=== PATIENT | female | born 1945 | race Caucasian/White ===

== ENCOUNTER 2017-04-09 08:43 | Inpatient (IN) | payer OTHER ==
[2017-03-29 13:58] VITALS: BMI 57.0
--- NOTE | 2017-03-29 14:47 | PAT Medication Instructions ---
Service Date Mar 29, 2017. Current Home Medication List Acetaminophen (Tylenol), 1-2 TAB PO UD PRN for Pain Albuterol Sulfate (Proventil Hfa), 2 PUFFS INH UD PRN for REACTIVE AIRWAY DISEASE Aspirin (Aspirin Ec), 81 MG PO QPM Atorvastatin (Lipitor), 20 MG PO QPM Bioflavonoid Products (Vitamin C Plus 500 mg), 1 TAB PO QAM Calcium/Vitamin D (Os-Humza 500 Plus D), 1 TAB PO BID Cholecalciferol (Vitamin D3), 1 TAB PO QAM Diazepam (Valium), 2 MG PO BID PRN for ANXIETY Diclofenac Sodium (Topical) (Voltaren 1% Top Gel), 1 DOSE TOP UD Docusate Sodium (Docusate Sodium), 1 CAP PO QPM Fish Oil (Alexandria-3), 1 CAP PO BID Fluticasone Propionate (Nasal) (Flonase Allergy Relief), 2 SPRAYS MOY QPM Fluticasone-Salmeterol 230/21 Mcg (Advair Hfa 230/21 Mcg), 1 PUFFS INH BID Folic Acid (Folic Acid), 1 TAB PO QPM Rgcyvcyvgfh-Dmezzlkeljd-Rmo C- (Glucosamine Chondroitin), 1 CAP PO BID Ibuprofen (Motrin), 400 MG PO BID PRN for Pain Levothyroxine Sodium (Levothyroxine Sodium), 1 TAB PO QAM Methocarbamol (Robaxin), 500 MG PO TID PRN for RN Multivitamin (Multivitamin), 1 TAB PO QAM Pantoprazole (Protonix), 40 MG PO QPM Polyethylene Glycol 3350 (Miralax), 17 GM PO QPM PRN for RN Sertraline (Zoloft), 1.5 TAB PO QAM Solifenacin (Vesicare), 10 MG PO QPM Valsartan/Hctz (Diovan Hct 160MG/12.5MG), 1 TAB PO QAM Vitamin B Cmplx/Vitc/Folic Ac (Nephrocaps), 1 CAP PO QPM [Magnesium], 250 MG PO QAM [Oxybutinin], 10 MG PO QPM [anti fungal foot pow], DOSE TOP PRN Medication Instructions For Your Scheduled Surgery - Hold the following medications 2 weeks prior to surgery: Fish Oil (Alexandria-3), 1 CAP PO BID Uztvuqpiyeg-Qizcnejjttx-Suk C- (Glucosamine Chondroitin), 1 CAP PO BID - Hold the following medications 24 hours prior to surgery: [anti fungal foot pow], DOSE TOP PRN Diclofenac Sodium (Topical) (Voltaren 1% Top Gel), 1 DOSE TOP UD - Hold the following medications the morning of surgery: Ibuprofen (Motrin), 400 MG PO BID PRN for Pain (otherwise okay to continue per surgeon) Bioflavonoid Products (Vitamin C Plus 500 mg), 1 TAB PO QAM Calcium/Vitamin D (Os-Humza 500 Plus D), 1 TAB PO BID Cholecalciferol (Vitamin D3), 1 TAB PO QAM Valsartan/Hctz (Diovan Hct 160MG/12.5MG), 1 TAB PO QAM [Magnesium], 250 MG PO QAM Methocarbamol (Robaxin), 500 MG PO TID PRN Multivitamin (Multivitamin), 1 TAB PO QAM - Take the following medications the morning of surgery with a sip of water OTHERWISE NOTHING TO EAT OR DRINK AFTER MIDNIGHT: Levothyroxine Sodium (Levothyroxine Sodium), 1 TAB PO QAM Acetaminophen (Tylenol), 1-2 TAB PO UD PRN for Pain (may take if needed up to 4 hours prior to surgery) Diazepam (Valium), 2 MG PO BID PRN for ANXIETY Fluticasone-Salmeterol 230/21 Mcg (Advair Hfa 230/21 Mcg), 1 PUFFS INH BID Albuterol Sulfate (Proventil Hfa), 2 PUFFS INH UD PRN for REACTIVE AIRWAY DISEASE (use if needed; BRING TO HOSPITAL) Sertraline (Zoloft), 1.5 TAB PO QAM - Take the following medications as scheduled the night before surgery: Fluticasone Propionate (Nasal) (Flonase Allergy Relief), 2 SPRAYS MOY QPM Folic Acid (Folic Acid), 1 TAB PO QPM Docusate Sodium (Docusate Sodium), 1 CAP PO QPM Aspirin (Aspirin Ec), 81 MG PO QPM Atorvastatin (Lipitor), 20 MG PO QPM Pantoprazole (Protonix), 40 MG PO QPM Solifenacin (Vesicare), 10 MG PO QPM Vitamin B Cmplx/Vitc/Folic Ac (Nephrocaps), 1 CAP PO QPM [Oxybutinin], 10 MG PO QPM Acetaminophen (Tylenol), 1-2 TAB PO UD PRN for Pain Diazepam (Valium), 2 MG PO BID PRN for ANXIETY Fluticasone-Salmeterol 230/21 Mcg (Advair Hfa 230/21 Mcg), 1 PUFFS INH BID Albuterol Sulfate (Proventil Hfa), 2 PUFFS INH UD PRN for REACTIVE AIRWAY DISEASE Polyethylene Glycol 3350 (Miralax), 17 GM PO QPM PRN Methocarbamol (Robaxin), 500 MG PO TID PRN If you have any questions please call us at [phone] or [phone] or [phone]
--- NOTE | 2017-03-29 15:27 | DIAGNOSTIC IMAGING REPORT ---
CHEST 2 VIEWS ROUTINE HISTORY: Preop. COMPARISON: Chest 08/02/2015. FINDINGS: Small linear scarlike density within the left midlung zone. The lungs are otherwise clear. The heart is normal in size. S-shaped scoliosis of the thoracolumbar spine is again noted. No pleural effusions. No pneumothorax. IMPRESSION: No acute process. Scoliosis. Electronically signed by: Ben Valerio M.D. 03/29/2017 3:25 PM Dictated Date/Time: 03/29/2017 3:24 PM
[2017-03-29 15:30] LABS: BASO % 0.5 %; BASO ABS # 0.05 K/uL (0-0.2); COMPLETE YES; EOS % 2.5 %; HEMATOCRIT 39.4 % (37-47); IG% 0.2 %; LYMPH % 16.9 %; LYMPH ABS # 1.64 K/uL (1.2-3.4); MEAN CELL VOLUME 86.8 fL (80-100); MEAN CORPUSCULAR HEMOGLOBIN 28.6 pg (25-34); MEAN PLATELET VOLUME 9.9 fL (7.4-10.4); MONO % 6.8 %; NEUT % 73.1 %; PLATELET COUNT 255 K/uL (130-400); RED BLOOD COUNT 4.54 M/uL (4.2-5.4); WHITE BLOOD COUNT 9.71 K/uL (4.8-10.8)
[2017-03-29 15:30] LABS: URINE APPEARANCE CLEAR (CLEAR); URINE COLOR YELLOW; URINE SPECIFIC GRAVITY 1.016 (1.000-1.030)
[2017-03-29 15:31] LABS: URINE BILIRUBIN NEG (NEG); URINE NITRITE NEG (NEG); UROBILINOGEN NEG (NEG)
[2017-03-29 15:42] LABS: BUN/CREATININE RATIO 18.1 (10-20); CREATININE 0.73 mg/dl (0.60-1.20); POTASSIUM 3.6 mmol/L (3.5-5.1)
[2017-03-29 15:44] LABS: MANUAL MICROSCOPIC REQUIRED? NO; REVIEW REQ? NO
[2017-03-29 15:54] LABS: INR 0.9 (0.9-1.1)
[2017-03-30 06:52] LABS: ESTIMATED AVERAGE GLUCOSE 126 mg/dl; HA1C FLAG Normal (Normal)
--- NOTE | 2017-04-08 16:13 | HISTORY & PHYSICAL EXAMINATION ---
DATE OF ADMISSION: 04/09/2017 HISTORY OF PRESENT ILLNESS: The patient presents as a 71-year-old female, 5 feet, 2 inches, 240 pounds with complaints of ongoing pain attributable to her right knee. She has been nonresponsive to conservative therapy and presents today for right total knee arthroplasty. PAST MEDICAL HISTORY: Significant for heart murmur, hypertension, and hypercholesterolemia. She also has a history of asthma, previous pneumonias, sleep apnea, anxiety, and hypothyroidism. She also has a history of deep venous thrombosis of her left lower extremity. She has failed attempts at conservative management and presents for total knee arthroplasty after attempted injections, anti-inflammatories, relative rest, and activity modification. Past medical history is otherwise unremarkable. See history of present illness for pertinent positives. FAMILY HISTORY: Otherwise unremarkable and noncontributory. SOCIAL HISTORY: The patient relates occasional alcohol use. No smoking. No recreational drug use. PAST SURGICAL HISTORY: Consistent with that of a left total knee arthroplasty. ALLERGIES: RELAFEN. MEDICATIONS: Include Zoloft 100 mg 1-1/2 tablet in the morning, Lipitor 20 mg in the evening, Diovan 80/12.5 mg in the morning, oxybutynin 10 mg p.o. at bedtime, levothyroxine 25 mcg daily, Robaxin 500 mg 1 tab b.i.d. as needed, Proventil inhaler 90 mcg inhaler 2-4 times as needed, Flonase 50 mcg spray 1-2 times as needed, baby aspirin 81 mg p.o. daily at bedtime, B complex vitamins, and multivitamins. PHYSICAL EXAMINATION: GENERAL: A very pleasant 71-year-old female with the above findings noted. HEENT: Unremarkable. Atraumatic and normocephalic. HEART: Regular at 72 beats per minute. No murmurs noted. LUNGS: Clear without rales, rhonchi, or wheezes noted. ABDOMEN: Soft, nontender, and nondistended. Bowel sounds are present in all 4 quadrants. RECTAL: No rectal examination was performed. PLAN: Total knee arthroplasty, postoperative pain management, DVT prophylaxis, and antibiotics as noted above. MTDD
[2017-04-09] VITALS (9 sets, daily range): BP systolic 122–157; BP diastolic 65–76; PULSE 79–98; TEMP 36.5–37; O2SAT 93–98; Ht 157.5 cm; Wt 142.0 kg
[~2017-04-09] VITALS: Ht 157.5 cm; Wt 142.0 kg
--- NOTE | 2017-04-09 08:13 | History & Physical Bridge Note ---
H&P Re-Evaluation Bridge Note: I have examined the patient, reviewed the History & Physical and in the interval since the performance of the History & Physical I have noted the following changes of clinical significance: No changes noted
[~2017-04-09 08:43] MED LIST: ACET-1256 PO; ACETAMINOPHEN 500 MG TAB PO SCH; ALBUAER INH; ASPI81TA28 PO; ATOR10TA82 PO; ATROPINE SULFATE 0.1 MG/ML 5ML SYR IV PRN; B-CO1CAP17 PO; BIOFTAB24 PO; BUPIVACAINE 0.5 % 5 MG/1 ML PF 10ML VIAL ONE; CALC500C70 PO; CEFAZOLIN 3000MG IV PUSH 15 ML IV SCH; CHOL1000 PO; CeleBREX 200 MG CAP PO SCH; DEXAMETHASONE 4 MG TAB PO SCH; DIAZ2TAB PO; DICL1GEL12 TOP; DOCU100C31 PO; EpHEDrine SULFATE INJ 50 MG/ML AMP IV PRN; FAMOTIDINE 20 MG TAB PO SCH; FLUT0.15 NAE; FLUT230A INH; FLV400 PO; GABAPENTIN 300 MG CAP PO SCH; GLUC1CAP35 PO; HYDROmorphone INJ 2 MG/ML SYR/VIAL IV PRN; IBUP-1459 PO; LACTATED RINGER'S 1000ML 1,000 ML IV SCH; LACTATED RINGER'S 1000ML 500 ML IV ONE; LACTATED RINGER'S 1000ML IV SCH; LEVO25TA5 PO; MAGNESIUM PO; METH500T37 PO; METOCLOPRAMIDE HCL 10 MG TAB PO SCH; MULT-506 PO; OMEG10007 PO; ONDANSETRON INJ 2 MG/ML 2 ML VIAL IV PRN; OXYBUTININ PO; PANT40TA PO; PHENYLEPHRINE 100MCG/ML 5ML SYR IV PRN; POLY335019 PO; ROPIVACAINE 0.5% 5 MG/ML 30 ML VIAL ONE; ROPIVACAINE 5MG/ML 30 ML 150 MG, BUPIVACAINE 0.5% MPF INJ 30 ML, EpINEphrine HCL INJ 0.... INFIL SCH; SERT-234 PO; SOLI10TA2 PO; VALS160T58 PO; [UNRECOGNIZED DRUG - OTHER] TOP
[2017-04-09] MEDS ORDERED: MIDAZOLAM HCL 1 MG/ML 2ML VIAL ONE (10:13)
[2017-04-09] MEDS ORDERED: LIDOCAINE HCL 2% 2 ML VIAL (20MG/ML) ONE (10:13)
[2017-04-09] MEDS ORDERED: FENTANYL CITRATE INJ 50 MCG/1 ML 2 ML VIAL ONE ×3 (10:13→13:12)
[2017-04-09] MEDS ORDERED: ONDANSETRON INJ 2 MG/ML 2 ML VIAL ONE (10:13)
[2017-04-09] MEDS ORDERED: PROPOFOL IV EMULSION 10 MG/ML 20 ML VIAL IV ONE (10:13)
[2017-04-09] MEDS ORDERED: POVIDONE-IODINE OP SOLN 30 ML BTL ONE (10:58)
[2017-04-09] MEDS ORDERED: ORTHO JOINT ANESTHETIC ONE (10:58)
[2017-04-09] MEDS ORDERED: BACITRACIN 50000 UNIT VIAL ONE (10:59)
--- NOTE | 2017-04-09 13:04 | [facility] Operative Report ---
Operative Report Operative Date Apr 09, 2017. Pre-Operative Diagnosis Right knee degenerative joint disease Post-Operative Diagnosis same as pre-operative Procedure(s) Performed Right total knee arthroplasty-cemented utilizing Marmolejo & Nephew journey 2 nonlocked total knee arthroplasty size 5 femur 4 tibia Poly-[address] Simone Moses Content Developer Surgeon(s) VENKATESH Bermudez and Dr. Ming Adler Estimated Blood Loss 10ml Findings Patient presents as were pleasant 18-year-old female severe end-stage Tri-Chlor milligrams wedgies by her right knee is present left total knee arthroplasty presents a for right total knee arthroplasty as she has subchondral sclerosis cystic changes hdej-is-prrp changes varus alignment and has failed all times a conservative management including injections physical therapy bracing anti- inflammatories Specimens Specimen A: Right knee bone and tissue Complication(s) None Disposition Recovery Room / PACU Indications Patient's failed attempts at conservative management including injections physical therapy anti-inflammatories activity modification weight loss presents with a long with severe end-stage DJD ready for a total knee arthroplasty Description of Procedure After proper prepping and draping of the Right lower extremity anterior midline incision was made over the region of the extensor extensor mechanism after meticulous hemostasis was obtained and maintained in subcutaneous tissues a medial parapatellar incision was made The patella was subluxed lateralward the medial lateral gutter were cleaned from any hypertrophic synovitis and scar tissue of the distal femoral block was placed and the distal femoral osteotomy cut was made subsequently the chamfers anterior and posterior osteotomy cuts were made utilizing the 4-in-1 block the tibia was subsequently subluxed anteriorward medial and ateral meniscal remnants were excised in their entirety remnants of the anterior and posterior cruciate ligaments were excised in their entirety excellent exposure of the proximal tibia was obtained the tibial osteotomy guide was placed on the proximal tibial osteotomy cut was made once again the knee was irrigated with copious amounts of sterile saline solution the patella was subsequently everted lateralward thickened scar tissue around the patella was removed the patella was subsequently cut utilizing a freehand technique and was drilled prepared for final preparation and placement of patella socially flexion-extension gaps were checked and the equal and symmetric trials were placed to the appropriate femoral and tibial trials with poly-spacer being placed for equal flexion and extension gaps and full range of motion including extension to 0 and flexion to 140 the trial components after having been taken to recovery range of motion was subsequently removed meticulous hemostasis was obtained and maintained subsequently a knee block injection of joint cocktail including ropivacaine 0.5% 150 mg. Bupivacaine 0.5 % epinephrine 1-200,030 mL's toradol 30 mg dexamethasone 4 mg ketamine 10 mg clonidine 100 micrograms normal saline solution 30 mg was infiltrated into the soft tissues of the posterior knee medial lateral gutters and periosteal synovium special attention was paid to protect neurovascular structures at all times subsequently trial components having been removed the knee was irrigated with sterile saline solution. debris was removed the proximal tibia was subsequently prepared and was made ready for the placement of the tibial component tibial component was also cemented and tamped into position the femoral component was subsequently placed and cemented in the position the patellar component was subsequently cemented in position because hemostasis once again obtained and maintained wound having been thoroughly irrigated with debridement and debridement lavage was performed as well as a medial parapatellar incision closed with #1 Vicryl in interrupted fashion subcutaneous was closed with #2 Vicryl skin was closed with skin clips. Dr valadez and RYAN were necessary for prepping and drapping as well as wound closure of deep fascia Sub cutaneous tissue and skin and was necessary for the case. A sterile compressive dressing was placed patient was taken to recovery in stable condition of report dictated by Josué I attest to the content of the Intraoperative Record and any orders documented therein. Any exceptions are noted below. I attest to the content of the Intraoperative Record and any orders documented therein. Any exceptions are noted below.
[2017-04-09] MEDS ORDERED: DIAZEPAM 2MG TAB PO PRN (13:45)
[2017-04-09] MEDS ORDERED: ZOLPIDEM TARTRATE 5 MG TAB PO PRN (13:45)
[2017-04-09] MEDS ORDERED: ONDANSETRON INJ 2 MG/ML 2 ML VIAL IV PRN (13:45)
[2017-04-09] MEDS ORDERED: BISACODYL 10 MG SUPP PR PRN (13:45)
[2017-04-09] MEDS ORDERED: TRAMADOL HCL 50 MG TAB PO PRN (13:45)
[2017-04-09] MEDS ORDERED: MoRPHine SULFATE 2 MG/ML CARP IV PRN (13:45)
[2017-04-09] MEDS ORDERED: SOD PHOSPHATE/SOD BIPHOSPHATE ENEMA 132 ML BTL PR PRN (13:45)
[2017-04-09] MEDS ORDERED: MAGNESIUM HYDROXIDE SUSP 30 ML UDC PO PRN (13:45)
[2017-04-09] MEDS ORDERED: ALUMINUM/MAGNESIUM/SIMETH (MAALOX MAX) 30 ML UDC PO PRN (13:45)
--- NOTE | 2017-04-09 14:11 | Anesthesiology Progress Note ---
Anesthesia Post Op Note Date & Time Apr 09, 2017 at 14:11 Vital Signs Pain Intensity: 0 Vital Signs Past 12 Hours Date Time Temp Pulse Resp B/P (MAP) Pulse Ox O2 Delivery O2 Flow Rate FiO2 04/09/17 14:05 86 18 136/67 99 Nasal Cannula 3 04/09/17 13:55 86 18 133/66 94 Oxymask 5 04/09/17 13:45 86 18 130/63 94 Oxymask 5 04/09/17 13:35 36.0 86 18 144/64 99 Oxymask 10 04/09/17 09:19 86 18 147/73 95 Room Air Notes Mental Status: alert / awake / arousable, participated in evaluation Pt Amnestic to Procedure: Yes Nausea / Vomiting: adequately controlled Pain: adequately controlled Airway Patency, RR, SpO2: stable & adequate BP & HR: stable & adequate Hydration State: stable & adequate Anesthetic Complications: no major complications apparent
[2017-04-09] MEDS: SODIUM CHLORIDE 0.9% 1000ML 1,000 ML IV SCH (15:05)
--- NOTE | 2017-04-09 15:52 | DIAGNOSTIC IMAGING REPORT ---
TWO VIEWS RIGHT KNEE CLINICAL HISTORY: Postoperative examination. FINDINGS: AP and crosstable lateral portable views of the right knee are obtained. A right knee arthroplasty is in near anatomic alignment. There has been undersurface remodeling of the patella. No acute fracture is seen. There are expected postoperative changes around the knee including skin clips, a surgical drain, soft tissue edema, and subcutaneous gas. IMPRESSION: Expected postoperative changes status post right knee arthroplasty. No acute fracture is seen. Electronically signed by: Saravanan Alvarez M.D. 04/09/2017 3:51 PM Dictated Date/Time: 04/09/2017 3:51 PM
[2017-04-09] MEDS ORDERED: ALBUTEROL HFA 8 GM INHALER INH PRN (16:00)
[2017-04-09] MEDS: KETOROLAC TROMETHAMINE 15 MG/ML VIAL IV. SCH ×2 (16:22→22:26)
[2017-04-09] MEDS: ENOXAPARIN 30 MG/0.3 ML SYR SQ SCH (18:07)
[2017-04-09] MEDS: CEFAZOLIN IV 2,000 MG in SYRINGE 0 ML IV SCH (20:15)
[2017-04-09] MEDS: ASPIRIN 81 MG ECTAB PO SCH (20:42)
[2017-04-09] MEDS: ATORVASTATIN 20 MG TAB PO SCH (20:42)
[2017-04-09] MEDS: FLUTICASONE PROPIONATE NA SPR 16 GM BTL NAE SCH (20:42)
[2017-04-09] MEDS: SENNA 8.6 MG TAB PO SCH (20:43)
[2017-04-09] MEDS: ACETAMINOPHEN 500 MG TAB PO SCH (22:26)
[2017-04-10] MEDS: SODIUM CHLORIDE 0.9% 1000ML 1,000 ML IV SCH ×2 (00:19→10:03)
[2017-04-10 03:35] VITALS: BP 143/63; PULSE 82; TEMP 36.5; O2SAT 94
[2017-04-10] MEDS: KETOROLAC TROMETHAMINE 15 MG/ML VIAL IV. SCH ×2 (03:50→09:35)
[2017-04-10] MEDS: CEFAZOLIN IV 2,000 MG in SYRINGE 0 ML IV SCH (03:50)
[2017-04-10] MEDS: LEVOTHYROXINE 25 MCG TAB PO SCH (05:53)
[2017-04-10] MEDS: ENOXAPARIN 30 MG/0.3 ML SYR SQ SCH ×2 (05:54→19:08)
[2017-04-10] MEDS: ACETAMINOPHEN 500 MG TAB PO SCH ×3 (05:54→21:57)
[2017-04-10 07:10] VITALS: BP 115/62; PULSE 82; TEMP 36.6; O2SAT 97
[2017-04-10 07:23] LABS: MEAN CELL VOLUME 87.1 fL (80-100); MEAN CORPUSCULAR HEMOGLOBIN 28.5 pg (25-34); MEAN CORPUSCULAR HGB CONC 32.8 g/dl (32-36); MEAN PLATELET VOLUME 9.5 fL (7.4-10.4); PLATELET COUNT 196 K/uL (130-400); RED BLOOD COUNT 3.33 M/uL (4.2-5.4); WHITE BLOOD COUNT 12.39 K/uL (4.8-10.8)
[2017-04-10] MEDS ORDERED: DEXAMETHASONE INJ 10 MG in SYRINGE 0 ML IV SCH (07:30)
[2017-04-10 07:52] LABS: BUN/CREATININE RATIO 19.7 (10-20); CALCIUM 8.2 mg/dl (8.5-10.1); CREATININE 0.72 mg/dl (0.60-1.20); POTASSIUM 3.6 mmol/L (3.5-5.1)
--- NOTE | 2017-04-10 08:13 | Orthopedic Progress Note ---
Orthopedic Progress Note Date of Service Apr 10, 2017. Subjective Post OP Day: 1 Reports: feeling well, Denies: chest pain, SOB, nausea / vomiting, light headedness, calf pain Additional Notes: Pt c/o being unable to dorsiflex the ankle this AM. Able to DF the great toe slightly. No other complaints. Objective calves soft nontender, dressing C/D/I, A&O x3, toes mobile Right foot drop. Minimal dorsiflexion of the right foot/great toe. Numbness noted over the dorsum of the foot. Date Time Temp Pulse Resp B/P (MAP) Pulse Ox O2 Delivery O2 Flow Rate FiO2 04/10/17 07:10 36.6 82 18 115/62 (79) 97 Room Air 04/10/17 03:35 36.5 82 16 143/63 (89) 94 CPAP 04/10/17 00:16 CPAP 04/09/17 23:45 36.5 81 18 152/65 (94) 93 CPAP 04/09/17 20:00 95 Nasal Cannula 2.0 04/09/17 19:00 36.9 87 18 122/73 (89) 95 Nasal Cannula 2.0 04/09/17 17:54 98 140/76 (97) 04/09/17 16:52 80 18 157/74 (101) 04/09/17 16:05 Nasal Cannula 2.0 04/09/17 15:50 80 123/67 (85) 04/09/17 15:14 79 16 143/69 (93) 04/09/17 14:40 98 Nasal Cannula 2.0 04/09/17 14:40 37.0 79 16 148/74 (98) 98 Nasal Cannula 2.0 04/09/17 14:40 98 Nasal Cannula 2.0 04/09/17 14:25 36.5 79 18 139/64 97 Nasal Cannula 3 04/09/17 14:15 79 18 141/66 99 Nasal Cannula 3 04/09/17 14:05 86 18 136/67 99 Nasal Cannula 3 04/09/17 13:55 86 18 133/66 94 Oxymask 5 04/09/17 13:45 86 18 130/63 94 Oxymask 5 04/09/17 13:35 36.0 86 18 144/64 99 Oxymask 10 04/09/17 09:19 86 18 147/73 95 Room Air Laboratory Results 24 Hours: Test 04/10/17 06:26 Hematocrit 29.0 % Hemoglobin 9.5 g/dL Assessment & Plan Assessment: POD 1 Right TKA Right Foot drop Plan: PT/OT Foot drop likely due to intra op injection. Follow for now. Usually clears within 24 to 48 hours. Planning for OPPT upon dc Inhouse Planning Pain Management: Celebrex, Toradol, Ultram, Morphine, PO Tylenol, Oxy IR DVT Prophylaxis: TEDs, SCDs, Lovenox Discharge Planning Discharge Planning: home with oppt
--- NOTE | 2017-04-10 08:59 | Discharge Instructions ---
Discharge Instructions Date of Service Apr 10, 2017. Admission Reason for Admission: Right Knee Osteoarthritis Discharge Discharge Diagnosis / Problem: Right Knee Djd Discharge Goals Goal(s): Decrease discomfort, Improve function Activity Recommendations Activity Limitations: per Instructions/Follow-up section Weightbearing Status: Right weightbearing (as tolerated) . Instructions / Follow-Up Instructions / Follow-Up ACTIVITY RECOMMENDATIONS: SELF CARE INSTRUCTIONS AFTER TOTAL KNEE REPLACEMENT A. You may need to continue a physical therapy program after discharge from the hospital. There are several options available to you. Your doctor will assist you in selecting the best one for you. 1. An out-patient facility 2 to 3 times a week for therapy or home therapy. 2. Continue working on all exercises taught to you in the hospital. Your goals should be to increase bending of your knee to 90 degrees and beyond and to fully straighten your knee. B. You may progress at your own pace from walking with a walker or crutches to a cane; then to no assistive devices. C. Make walking a part of your daily routine. Be up as much as comfortable with rest periods throughout the day. Rest with leg elevation is very important. Use the ice wrap frequently for the first 3-4 weeks. D. There are no restrictions on activities. You may ride in a car, shop, participate in clinical orthoptist and all social activities. E. Wear the long elastic stockings (MICHAEL hose) 20 hours a day for 2 weeks after surgery. They can be removed several times a day for laundering and for a bath. F. You may shower, no tub baths until cleared by your doctor. SPECIAL CARE INSTRUCTIONS: VERY IMPORTANT TO READ AND REVIEW A. There are a few signs you need to watch for after you are home. Call [facility] if you notice any of the followin. Increased severe knee pain. Some pain is expected especially when you exercise. 2. Increased swelling in your leg or knee; pain or swelling of the calf muscle in either lower leg. 3. Any fluid drainage from the incision. 4. Shortness of breath or chest pain. B. Please call [facility] at if you have any concerns or questions about your operation or recovery. The doctor or his nurse will return your call promptly. C. You must take antibiotics before dental work, bladder, bowel or other surgery. Your doctor will provide you with a permanent care to carry describing this precaution. IMPORTANT: * TAKE LOVENOX 30MG SQ IN THE AM AND PM FOR 2 WEEKS. AFTERWARDS, REMEMBER TO TAKE ASPIRIN, 81 MG, TWICE DAILY FOR 2 WEEKS AFTER YOUR LOVENOX IS FINISHED UNLESS OTHERWISE DIRECTED. THIS IS YOUR BLOOD THINNER. * HIGH RISK PATIENTS MAY BE PRESCRIBED A STRONGER BLOOD THINNER. THIS WILL BE PROVIDED AT DISCHARGE. * CALL IF INCREASED PAIN, REDNESS, DRAINAGE OR FEVER GREATER THAT 101. * WEAR MICHAEL HOSE 20 HOURS PER DAY FOR 2 WEEKS. * Prevena- This is a large suction dressing covering your incision. This will help pull any excess drainage from the wound and allow your incision to heal properly. You may shower with this if you can keep the unit outside of the shower. If any bleeding or leakage is noted please call your doctor's office. This will remain on your incision for 7 days and then should be removed. This can be done yourself or by the home nursing staff if applicable. The entire unit is disposable once removed. Once removed, keep incision clean and dry. If redness or drainage is noted, please call your surgeon. . FOLLOW UP VISIT: If appointment is not already scheduled: Please call [facility] to make a follow-up appointment for 2 weeks after your surgery at . Current Hospital Diet Patient's current hospital diet: Low Fat Diet Discharge Diet Recommended Diet: Low Fat Diet Procedures Procedures Performed: Right total knee arthroplasty-cemented utilizing Marmolejo & Nephew journey 2 nonlocked total knee arthroplasty size 5 femur 4 tibia Poly-32 oval patella Pending Studies Studies pending at discharge: no Laboratory Results Hemoglobin A1c Test 03/29/17 14:55 Range/Units Estimated Average Glucose 126 mg/dl Hemoglobin A1c 6.0 H 4.5-5.6 % Medical Emergencies . Who to Call and When: Medical Emergencies: If at any time you feel your situation is an emergency, please call 911 immediately. . Non-Emergent Contact Non-Emergency issues call your: Surgeon Call Non-Emergent contact if: temperature is above 101.5, your pain is not controlled, your pain is worsening, wound has increased drainage, wound has increased redness . "Provider Documentation" section prepared by Brian Hoffmann. . VTE Core Measure Inpt VTE Proph given/why not?: Enoxaparin (Lovenox)NICOLE, Javier Dominguez, SCD's [place] Drug Monitoring Program Search Results: patient reviewed within database, no issues identified
[2017-04-10] MEDS ORDERED: VALSARTAN/HCTZ 160/12.5 MG TAB PO SCH (09:00)
[2017-04-10] MEDS: ADVAIR INH SCH ×2 (09:00→20:25)
--- NOTE | 2017-04-10 09:30 | Clinical Documentation Query ---
CLINICAL DOCUMENTATION QUERY Dr. CHRISTENSEN, In your clinical opinion is this patient being managed for: ( x ) Morbid obesity with BMI 57.2 ( ) Not Agree ( ) Other explanation of clinical findings (Please Explain) ( ) Unable to determine (Please Define) ( ) Need to Discuss BMI: A significantly high (>40) or significantly low (<19) BMI will impact the severity of illness and risk of mortality of your patient. However, the physician must document a correlating diagnosis in the medical record. Please clarify and document your clinical opinion in the progress notes and discharge summary. Terms such as "probable", "suspected", "likely", "questionable", "possible", or "still to be ruled out" are acceptable. IF IN AGREEMENT, YOU MUST DOCUMENT ABOVE DIAGNOSTIC STATEMENT IN DAILY PROGRESS NOTES AND DISCHARGE SUMMARY. This document is not part of the patient's record. Thank You, Coreen De Jesus RN [phone]
[2017-04-10] MEDS: OXYCODONE HCL IR 5 MG TAB (IMMEDIATE RELEASE) PO PRN ×2 (09:35→20:48)
[2017-04-10] MEDS: MULTIVITAMIN TAB PO SCH (10:04)
[2017-04-10] MEDS: PANTOprazole SOD 40 MG TAB PO SCH (10:05)
[2017-04-10] MEDS: SERTRALINE HCL 100 MG TAB PO SCH (10:05)
[2017-04-10] MEDS: VALSARTAN 80 MG TAB PO SCH (10:05)
[2017-04-10] MEDS: HYDROCHLOROTHIAZIDE 25 MG TAB PO SCH (10:06)
[2017-04-10 12:04] VITALS: BP 128/73; PULSE 79; TEMP 36.6
[2017-04-10] MEDS ORDERED: ACET-24 PO (13:45)
[2017-04-10] MEDS ORDERED: ONDA8TAB6 PO (13:45)
[2017-04-10] MEDS ORDERED: RXC5 PO (13:45)
[2017-04-10] MEDS ORDERED: LVNIS30 SQ (13:45)
[2017-04-10] MEDS ORDERED: CLB200 PO (13:45)
--- NOTE | 2017-04-10 14:40 | Anesthesiology Progress Note ---
Anesthesia Post Op Note Date & Time Apr 10, 2017 at 14:34 Vital Signs Vital Signs Past 12 Hours Date Time Temp Pulse Resp B/P (MAP) Pulse Ox O2 Delivery O2 Flow Rate FiO2 04/10/17 12:04 36.6 79 18 128/73 (91) 04/10/17 08:15 Room Air 04/10/17 07:10 36.6 82 18 115/62 (79) 97 Room Air 04/10/17 03:35 36.5 82 16 143/63 (89) 94 CPAP Notes Mental Status: alert / awake / arousable, participated in evaluation Pt Amnestic to Procedure: Yes Nausea / Vomiting: adequately controlled Pain: adequately controlled Airway Patency, RR, SpO2: stable & adequate BP & HR: stable & adequate Hydration State: stable & adequate Anesthetic Complications: no major complications apparent Pt indicated that the bottom of her foot and upper portion of her foot is still slightly numb, evaluated her leg and foot which was warm pink and dry, csm intact, she stated it has improved a lot in the past few hours. Spoke with the patient regarding her issue, answered all questions and patient was please with all explanations provided. VENKATESH had also seen the patient this morning and this was also conveyed to their service. She had no other questions at this time.
[2017-04-10 16:46] VITALS: BP 142/73; PULSE 80; TEMP 36.6; O2SAT 95
[2017-04-10] MEDS: FLUTICASONE PROPIONATE NA SPR 16 GM BTL NAE SCH (20:23)
[2017-04-10] MEDS: CeleBREX 200 MG CAP PO SCH (20:24)
[2017-04-10] MEDS ORDERED: [UNRECOGNIZED DRUG - OTHER] PO SCH (21:00)
[2017-04-10] MEDS ORDERED: SOLIFENACIN PO SCH (21:00)
[2017-04-10] MEDS: SENNA 8.6 MG TAB PO SCH (21:57)
[2017-04-10] MEDS: ASPIRIN 81 MG ECTAB PO SCH (21:57)
[2017-04-10] MEDS: ATORVASTATIN 20 MG TAB PO SCH (21:57)
[2017-04-10 23:50] VITALS: BP 119/55; PULSE 84; TEMP 36.8; O2SAT 99
[2017-04-11] MEDS: OXYCODONE HCL IR 5 MG TAB (IMMEDIATE RELEASE) PO PRN ×3 (04:05→13:50)
[2017-04-11] MEDS: ACETAMINOPHEN 500 MG TAB PO SCH ×2 (06:29→14:20)
[2017-04-11] MEDS: LEVOTHYROXINE 25 MCG TAB PO SCH (06:29)
[2017-04-11 06:37] VITALS: BP 120/58; PULSE 80; TEMP 36.8; O2SAT 93
[2017-04-11] MEDS: ENOXAPARIN 30 MG/0.3 ML SYR SQ SCH (06:44)
[2017-04-11] MEDS: ADVAIR INH SCH (07:15)
[2017-04-11] MEDS: SERTRALINE HCL 100 MG TAB PO SCH (07:16)
[2017-04-11] MEDS: MULTIVITAMIN TAB PO SCH (07:16)
[2017-04-11] MEDS: PANTOprazole SOD 40 MG TAB PO SCH (07:16)
[2017-04-11] MEDS: VALSARTAN 80 MG TAB PO SCH (07:17)
[2017-04-11] MEDS: HYDROCHLOROTHIAZIDE 25 MG TAB PO SCH (07:17)
[2017-04-11] MEDS: CeleBREX 200 MG CAP PO SCH (07:25)
--- NOTE | 2017-04-11 09:03 | Orthopedic Progress Note ---
Orthopedic Progress Note Date of Service Apr 11, 2017. Subjective Post OP Day: 2 Reports: feeling well, Denies: chest pain, SOB, nausea / vomiting, light headedness, calf pain Objective calves soft nontender, N/V intact, capillary refill less than 2 sec., dressing C /D/I (PREVENA WITH BLOODY DRAINAGE. WILL REMOVE AND APPLY STANDARD DRESSING.), A &O x3, toes mobile Date Time Temp Pulse Resp B/P (MAP) Pulse Ox O2 Delivery O2 Flow Rate FiO2 04/11/17 06:37 36.8 80 16 120/58 (78) 93 Room Air 04/10/17 23:50 36.8 84 16 119/55 (76) 99 CPAP 04/10/17 23:30 Room Air 04/10/17 16:46 36.6 80 18 142/73 (96) 95 Room Air 04/10/17 15:45 Room Air 04/10/17 12:04 36.6 79 18 128/73 (91) Assessment & Plan Assessment: POD 2 Right TKA Right Foot drop- RESOLVED Plan: PT/OT Foot drop likely due to intra op injection. Follow for now. Usually clears within 24 to 48 hours. Planning for OPPT upon dc REMOVE PREVENA TODAY AND APPLY PRESSURE DRESSING. WILL APPLY SILVERLON FOR DC. CHANGE LOVENOX TO 40 ONCE A DAY DUE TO DRAINAGE. Inhouse Planning Pain Management: Celebrex, Toradol, Ultram, Morphine, PO Tylenol, Oxy IR DVT Prophylaxis: TEDs, SCDs, Lovenox Discharge Planning Discharge Planning: home with oppt
[2017-04-11] MEDS ORDERED: ENOX40IN SQ (09:04)
[2017-04-11 10:25] VITALS: BP 101/61; PULSE 70; O2SAT 99
[2017-04-11] MEDS ORDERED: ACETAMINOPHEN 500 MG TAB PO ONE (14:18)
[2017-04-11 15:14] VITALS: BP 104/57; PULSE 76; TEMP 36.6; O2SAT 96
[2017-04-11 16:20] VITALS: BP 104/57; PULSE 76; TEMP 36.6; O2SAT 96
[2017-04-12] MEDS ORDERED: ENOXAPARIN 40 MG/0.4 ML SYR SQ SCH (09:00)
--- NOTE | 2017-04-13 08:06 | DISCHARGE SUMMARY ---
DISCHARGE DIAGNOSIS: Degenerative joint disease, right knee. SECONDARY DIAGNOSIS: Type 2 diabetes. CONSULTS: None. COMPLICATIONS: None. PROCEDURE: The patient underwent a right total knee arthroplasty by Dr. Moses on 04/09/2017. BRIEF HISTORY: Please see previously dictated history and physical. HOSPITAL SUMMARY: The patient was admitted on the above day for the above procedure. Procedure went without complication. Postop day 1, the patient was feeling well without complaints. She denied chest pain or shortness of breath. Vital signs were stable. She was afebrile. Dressing was clean, dry and intact. She did have some minimal dorsiflexion of the right foot and great toe. She did have some numbness noted over the dorsum of the foot. Hemoglobin was 9.5. The patient began physical therapy per protocol, foot drop, likely due to intraoperative injection, we will monitor. Postop day 2, the patient is feeling well, foot drop has resolved. Vital signs were stable. She was afebrile. Prevena was with bloody drainage. This was removed and standard dressing was applied. She was neurovascularly intact. The patient continued to progress with physical therapy. Lovenox was changed to 40 mg once daily. She was discharged home later that day in stable condition. For further review please see the chart. Lab, x-ray data and discharge instructions as per chart.
== END 2017-04-11 17:39 | disposition home or self-care (01) | DRG 470 ==
LOC: C.ACU 08:43 → C.3E 11:00 → ENRESERV 14:09
PROVIDERS: ADMIT Orthopaedic Surgery; ATTEND Orthopaedic Surgery
PROC: 0SRC0J9 Replacement of Right Knee Joint with Synthetic Substitute, Cemented, Open Approach (ICD-10-PCS; principal; 2017-04-09 12:00)
DX: M17.12 Unilateral primary osteoarthritis, left knee (principal); Z68.43 Body mass index [BMI] 50.0-59.9, adult; I10 Essential (primary) hypertension; E78.00 Pure hypercholesterolemia, unspecified; J45.909 Unspecified asthma, uncomplicated; G47.30 Sleep apnea, unspecified; F41.9 Anxiety disorder, unspecified; E03.9 Hypothyroidism, unspecified; Z86.718 Personal history of other venous thrombosis and embolism; E11.9 Type 2 diabetes mellitus without complications; K21.9 Gastro-esophageal reflux disease without esophagitis